=== PATIENT | male | born 1985 | race Caucasian/White ===

== ENCOUNTER 2021-03-10 21:51 | Emergency (ER) | payer OTHER ==
[~2021-03-10] VITALS: Ht 175.3 cm; Wt 86.2 kg
[2021-03-10 21:57] VITALS: BP 125/81
--- NOTE | 2021-03-10 22:00 | NUR ---
to lobby a/w bed ambulatory
[2021-03-10] MEDS ORDERED: LIDOCAINE/EPI 1% 1:100000 20 ML VIAL INJ ONE ×2 (22:35)
[2021-03-10] MEDS ORDERED: BACITRACIN OINT 500 UNITS/GM PKT TP ONE (22:35)
[2021-03-10 22:52] VITALS: BP 125/81
--- NOTE | 2021-03-10 22:52 | NUR ---
Patient discharged with v/s stable. Written and verbal after care instructions given and explained. Patient verbalized understanding. Ambulatory with steady gait. All questions addressed prior to discharge. Advised to follow up with PMD.
== END 2021-03-10 22:52 | disposition home or self-care (01) ==
LOC: MED 21:51
DX: S61.012A Laceration without foreign body of left thumb without damage to nail, initial encounter (principal); I77.2 Rupture of artery; X58.XXXA Exposure to other specified factors, initial encounter; Y93.89 Activity, other specified; Y92.89 Other specified places as the place of occurrence of the external cause; Y99.8 Other external cause status
CPT/HCPCS: 12001; 99291; J2001